=== PATIENT | male | born 1995 | race Caucasian/White ===

== ENCOUNTER 2017-04-12 19:45 | Emergency (ER) | payer SELFPAY ==
[~2017-04-12] VITALS: Ht 175.3 cm; Wt 109.4 kg
[2017-04-12 19:52] VITALS: BP 169/83; PULSE 119; RESP 18; TEMP 98.1; O2SAT 94
--- NOTE | 2017-04-12 20:36 | RADRPT ---
EXAM DATE/TIME: 04/12/2017 20:17 [place] COMPARISON: No previous studies available for comparison. INDICATIONS : Right foot pain. MEDICAL HISTORY : None. SURGICAL HISTORY : None. ENCOUNTER: Initial ACUITY: 2 days PAIN SCORE: 4/10 LOCATION: Right foot. FINDINGS: Three view examination of the right foot demonstrates soft tissue swelling. Minimally displaced fract ure base of fifth metatarsal. No other fractures. The calcaneus is intact. Bony mineralization is n ormal. CONCLUSION: Fracture fifth metatarsal. Van Gross MD on April 12, 2017 at 20:34 Board Certified Radiologist. This report was verified electronically.
--- NOTE | 2017-04-12 20:42 | PD ---
HPI Chief Complaint: Injury Time Seen by Provider: 20:18 Travel History International Travel<30 days: No Contact w/Intl Traveler<30days: No Traveled to known affect area: No History of Present Illness HPI 21 year-old male presents to the emergency room for evaluation of right foot pain and swelling after an inversion injury last night. Patient slipped on the wet porch. He was immediately able to walk but developed worsening pain the following hour and by the end of the night could no longer walk without pain. He has been using crutches all day today. Pain is localized to the right lateral aspect of the foot and worsened with ambulation and range of motion. He has not taken anything for his symptoms. Denies paresthesias. No chronic medical conditions or daily medications. Denies any other injuries or ankle pain. PFSH Past Medical History Medical History: Denies Significant Hx Diminished Hearing: No Tetanus Vaccination: > 5 Years Influenza Vaccination: No Past Surgical History Tonsillectomy: Yes Social History Alcohol Use: No Tobacco Use: No Substance Use: No Allergies-Medications (Allergen,Severity, Reaction): Coded Allergies: No Known Allergies (Verified , 04/12/17) Uncoded Allergies: NKA (Allergy, Unknown, 05/30/03) Reported Meds & Prescriptions Reported Meds & Active Scripts Active No Active Prescriptions or Reported Medications Review of Systems Except as stated in HPI: all other systems reviewed are Neg Physical Exam Narrative GENERAL: Well-nourished, well-developed male in no acute distress. Afebrile. Ambulatory. SKIN: Focused skin assessment warm/dry. No ecchymosis. Mild erythema over the right lateral lower foot. HEAD: Normocephalic. EYES: No scleral icterus. No injection or drainage. NECK: Supple, trachea midline. No JVD or lymphadenopathy. CARDIOVASCULAR: Regular rate and rhythm without murmurs, gallops, or rubs. RESPIRATORY: Breath sounds equal bilaterally. No accessory muscle use. EXTREMITY: Right lower extremity is neurovascularly intact with 2+ dorsalis pedis pulse. There is significant tenderness to palpation of the right lateral foot. Moderate edema of the foot. No tenderness to palpation of bilateral malleoli. Full range of motion of the toes and ankle. Data Data Last Documented VS Vital Signs Date Time Temp Pulse Resp B/P Pulse Ox O2 Delivery O2 Flow Rate FiO2 04/12/17 19:52 98.1 119 18 169/83 94 Orders Foot, Complete ([id number]) (04/12/17 ) [facility] Medical Decision Making Medical Screen Exam Complete: Yes Emergency Medical Condition: Yes Medical Record Reviewed: Yes Differential Diagnosis Sprain, contusion, fracture, dislocation Narrative Course 21 year-old male presents to the emergency room for evaluation of right-sided pain, redness, and swelling after injuring his pain. Patient had inversion injury. Right lower extremity is neurovascularly intact with 2+ dorsalis pedis pulse. Moderate edema and tenderness to palpation over the right lateral aspect. Full range of motion. Mild erythema without ecchymosis. X-ray shows minimal displaced fracture of the fifth metatarsal. Patient placed in posterior short leg splint. Patient discharged with orthopedic instructions and prescription for ibuprofen and told to follow-up with a decorator mannequin or return for worsening symptoms. He understands and agrees to plan. Diagnosis Primary Impression: Fracture of fifth metatarsal bone Qualified Code: S92.352A - Closed displaced fracture of fifth metatarsal bone of left foot, initial encounter Referrals: Primary Care Physician Patient Instructions: Foot Fracture in Adults (ED), General Instructions Additional Instructions: Rest and drink plenty of fluids. Nathaniel wrap and crutches as needed for pain. Take ibuprofen with food as directed, as needed for pain. Elevate, apply ice to the affected area for 20 minutes at a time, as needed for pain and swelling. Follow-up with a primary care physician. Return to the emergency room for worsening symptoms. Scripts No Active Prescriptions or Reported Meds Disposition: 01 DISCHARGE HOME Condition: Stable Debbie Delgado Apr 12, 2017 20:42
[2017-04-12] MEDS ORDERED: IBUP800T23 PO (20:43)
[2017-04-12 20:45] VITALS: BP 155/83; PULSE 99; O2SAT 98
== END 2017-04-12 21:06 | disposition home or self-care (01) ==
LOC: PHEFT 19:45
DX: S92.352A Displaced fracture of fifth metatarsal bone, left foot, initial encounter for closed fracture (principal); W18.49XA Other slipping, tripping and stumbling without falling, initial encounter
CPT/HCPCS: 29515; 73630; 99283; E0113